=== PATIENT | female | born 1970 | race African-American/Black ===

== ENCOUNTER → 2017-03-30 | Outpatient (CLI) | payer OTHER ==
--- NOTE | 2017-03-30 16:41 | RAD ---
Indication left adnexal mass. The history of prior hysterectomy has been provided. Initially transabdominal scans were obtained. The initial transabdominal scans or supplemented with transvaginal scans. There is a complex left adnexal mass compatible with ovary. There are septations within the mass and there are occasional nodules. It measures almost 7 cm in greatest dimension. Cystadenoma or cystadenocarcinoma should be considered. The right ovary appeared unremarkable. A small amount of free fluid was seen in the pelvis. IMPRESSION: Septated, predominantly cystic, enlarged left ovary. Cystadenoma or cystadenocarcinoma should be considered.
== END | disposition home or self-care (01) ==
LOC: US 14:38
PROVIDERS: ATTEND Family Medicine
DX: N83.202 Unspecified ovarian cyst, left side (principal); R19.00 Intra-abdominal and pelvic swelling, mass and lump, unspecified site; Z90.710 Acquired absence of both cervix and uterus
CPT/HCPCS: 76830; 76856

== ENCOUNTER → 2019-03-23 | Outpatient (CLI) | payer OTHER ==
--- NOTE | 2019-03-23 16:09 | KCIC ---
EXAM: CT Abdomen and Pelvis with IV contrast CLINICAL HISTORY: Left lower quadrant pain COMPARISON: none TECHNIQUE: Helical CT of the abdomen and pelvis was performed following the administration of intravenous contrast. Axial, coronal and sagittal reformatted images were generated. PQRS compliance statement - One or more of the following individualized dose reduction techniques were utilized for this study: 1. Automated exposure control 2. Adjustment of the mA and/or kV according to patient size 3. Use of iterative reconstruction technique FINDINGS: Lower chest: Lung bases are clear Abdomen and Pelvis: Changes of hepatic hypoattenuation particularly in the posterior aspect of the right hepatic dome likely represents changes of fatty infiltration. There is top normal in size measuring 17.9 cm in length. No definite liver lesion is seen. Accounting for postcholecystectomy change, no biliary ductal dilatation. Spleen is unremarkable. Adrenal glands are normal. Pancreas is unremarkable. Moderate to large volume colonic stool content is seen. Appendix is not definitively seen. No evidence of bowel obstruction. Bladder wall thickening may be seen with cystitis. No abdominal or pelvic lymphadenopathy. No abdominal pelvic ascites. Retroaortic left renal vein. Aorta is normal in caliber. No abdominal pelvic ascites. No abdominal or pelvic lymphadenopathy. Bones: Osseous structures are grossly unremarkable. IMPRESSION: 1. Bladder wall thickening may be seen with cystitis. 2. Regions of hepatic hypoattenuation within the right hepatic lobe likely fatty infiltration. 3. Accounting for postcholecystectomy change, no biliary ductal dilatation. 4. No bowel obstruction. Electronically signed by: Ishmael Taylor MD (03/23/2019 4:06 PM) [id number]
== END | disposition home or self-care (01) ==
LOC: KCIC CT 15:20
PROVIDERS: ATTEND Nurse Practitioner Gerontology
DX: N32.89 Other specified disorders of bladder (principal)
CPT/HCPCS: 74176

== ENCOUNTER → 2019-12-19 | Outpatient (CLI) | payer OTHER ==
--- NOTE | 2019-12-19 14:32 | RAD ---
Right lower extremity venous doppler ultrasound History: Right calf pain Comparison: None Findings: Multiple grayscale, color, and duplex spectral analysis sonographic images were acquired of the right lower extremity veins to evaluate for the presence of DVT. There is normal phasicity. Normal compression, color-flow, and augmentation is demonstrated from the right common femoral to the popliteal veins. There is normal color flow of the proximal greater saphenous and profunda femoris veins. There is normal color flow of segments of the calf veins. Impression: 1. There is no evidence of deep venous thrombosis from the right common femoral to the popliteal veins. Electronically signed by: Yvon Romero MD (12/19/2019 2:29 PM) [id number]
--- NOTE | 2019-12-19 14:33 | RAD ---
EXT NON VASC RIGHT History: Mass of the mid calf region Comparison: None. Findings: Multiple grayscale sonographic images of the right calf region at site of concern are submitted. No sonographic abnormality is demonstrated in this region. Impression: 1. No significant abnormality is demonstrated by ultrasound at the area of concern. Electronically signed by: Yvon Romero MD (12/19/2019 2:30 PM) [id number]
== END | disposition home or self-care (01) ==
LOC: US 12:59
PROVIDERS: ATTEND Family Medicine
DX: R22.41 Localized swelling, mass and lump, right lower limb (principal); M79.661 Pain in right lower leg
CPT/HCPCS: 76881; 93971